=== PATIENT | male | born 2000 | race Caucasian/White ===

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

== ENCOUNTER 2018-10-10 22:36 | Emergency (ER) | payer OTHER, SELFPAY ==
[2018-10-10 22:36] VITALS: BP 128/73; PULSE 63; RESP 15; TEMP 36.7; O2SAT 98; BMI 26.9
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
--- NOTE | 2018-10-10 23:01 | ED.DEP ---
ED Disposition - Plan for ED Patient: Instructions: HEAD INJURY, No Wake-Up (Adult) Referrals: Omari Wilkes MD [Primary Care Provider] -
== END 2018-10-10 23:14 | disposition home or self-care (01) ==
LOC: ED 23:05
PROVIDERS: Emergency Provider Emergency Medicine; Family Provider Family Medicine; PCP Family Medicine
DX: S09.90XA Unspecified injury of head, initial encounter (principal); R40.2410 Glasgow coma scale score 13-15, unspecified time; W51.XXXA Accidental striking against or bumped into by another person, initial encounter; Y93.64 Activity, baseball; Y92.9 Unspecified place or not applicable
CPT/HCPCS: 99282

== ENCOUNTER → 2021-08-01 | Outpatient (CLI) | payer OTHER, SELFPAY ==
--- NOTE | 2021-08-01 10:24 | RAD_ITS ---
STUDY: XR Shoulder Min 2 Views REASON FOR EXAM: Male, 20 years old. PAIN Technologist Notes pain possibly from an old football injury, pain x 3 years TECHNIQUE: XR Shoulder Min 2 Views LEFT COMPARISON: None. FINDINGS: Normal glenohumeral articulation. Normal acromioclavicular joint. Normal acromion. Normal humeral head and visualized proximal humerus. The soft tissue structures are unremarkable. Normal visualized pulmonary apex. RAD/Shoulder min 2 Views IMPRESSION: There are no acute findings of the shoulder. Electronically Signed: Praful Wei MD at 15:43 EDT ,
== END | disposition home or self-care (01) ==
PROVIDERS: PCP Family Medicine; Referring Provider Family Medicine; Visit Provider Family Medicine
DX: M25.512 Pain in left shoulder (principal)
CPT/HCPCS: 73030

== ENCOUNTER 2024-12-10 23:16 | Emergency (ER) | payer BC, SELFPAY ==
[2024-12-10 23:17] VITALS: BP 145/88; PULSE 99; RESP 18; TEMP 36.3; O2SAT 96; BMI 27.3
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
--- OUTSIDE RECORDS SUMMARY | 2024-12-11 00:39 | XMS RPT_ITS | CCD ---
Author Organization [facility] Care Team Providers Care Stage Hand Name Role Phone Sally El Unavailable JESSICA PINO Unavailable Unavailable JESSICA PINO Unavailable Unavailable JESSICA PINO Unavailable Unavailable Medications Current Medications Medication Drug Class(es) Dates Sig (Normalized) Sig (Original) benzonatate 100 mg oral capsule (1 source) Non-narcotic Antitussive Start: 03-25-2019 take 200 mg by mouth three times daily Benzonatate Active 200 MG PO THREE TIMES A DAY March 25, 2019 12:50pm 12 hr guaiFENesin 600 mg extended release oral tablet (1 source) Start: 03-25-2019 take 1 tablet by mouth twice daily, then take 1 tablet by mouth every twelve hours Guaifenesin (Mucinex) 600 mg tablet extended release 12hr Active 600 MG PO TWICE A DAY March 25, 2019 12:46pm Completed/Discontinued Medications Medication Drug Class(es) Dates Sig (Normalized) Sig (Original) acetaminophen 325 mg / HYDROcodone bitartrate 5 mg oral tablet (1 source) Opioid Agonist Start: 03-26-2017 End: 04-03-2017 take 1 tablet by mouth every six hours as needed Hydrocodone-Acetam inophen Discontinued 1 - 2 TABLET PO EVERY 6 HOURS NEEDED March 26, 2017 9:33am April 03, 2017 3:38pm amoxicillin 875 mg / clavulanate 125 mg oral tablet (1 source) Penicillin-class Antibacterial Start: 03-25-2019 End: 04-04-2019 take 1 tablet by mouth every twelve hours Amoxicillin-Pot Clavulanate (Augmentin) 875-125 mg tablet Discontinued 1 TABLET PO Q12H 20 March 25, 2019 12:50pm April 04, 2019 1:07am docusate sodium 100 mg oral capsule (2 sources) Start: 03-26-2017 End: 04-03-2017 take 100 mg by mouth twice daily as needed Docusate Sodium Discontinued 100 MG PO TWICE DAILY NEEDED March 26, 2017 2:58pm April 03, 2017 3:38pm Drug Treatment Unknown - unknown (1 source) No information available. promethazine hydrochloride 25 mg oral tablet (2 sources) Phenothiazine Start: 03-26-2017 End: 04-03-2017 take 25 mg by mouth every four hours as needed Promethazine Discontinued 25 MG PO EVERY 4 HOURS NEEDED March 26, 2017 2:58pm April 03, 2017 3:38pm Problems Problem Classification Problem Date Documented Da te Episodic/Chronic Other upper respiratory infections (1 source) Acute sinusitis; Translations: [Acute sinusitis, unspecified] Episodic Unclassified (1 source) No current problems or disability 01-07-2017 Unclassified (1 source) Unknown / UNK(Unknown) Onset: 02-03-2017 Results Test Name Value Interpretation Reference Range Facil ity Shoulder min 2 Viewson 08-01 Shoulder min 2 Views [facility] [address] [place] [address] Shoulder min 2 Views MR#: [id number] Acct: [id number] Name: ILDA COLLAZO Rep #: [id number] : 2000 M 20 From: Praful Vera PCP: Dr. Zac Erickson MD Status: REG CLI Study: Shoulder min 2 Views Date of Exam: 08/01/21 Exam# [id number] Ordering Dr: Zac Erickson MD STUDY: XR Shoulder Min 2 Views REASON FOR EXAM: Male, 20 years old. PAIN Technologist Notes pain possibly from an old football injury, pain x 3 years TECHNIQUE: XR Shoulder Min 2 Views LEFT COMPARISON: None. FINDINGS: Normal glenohumeral articulation. Normal acromioclavicular joint. Normal acromion. Normal humeral head and visualized proximal humerus. The soft tissue structures are unremarkable. Normal visualized pulmonary apex. RAD/Shoulder min 2 Views IMPRESSION: There are no acute findings of the shoulder. Electronically Signed: Praful Wei MD at 15:43 EDT , CC: Dr. Zac Erickson MD Service Supervisor: Signed [facility] MRI ARTHROGRAM SHOULDER RTon 02-03-2017 MRI ARTHROGRAM SHOULDER RT * * *Final Report* * *DATE OF EXAM: Feb 03 2017 2:31PM [facility] 0171 - MRI ARTHROGRAM SHOULDER RT / REASON: rt shoulder,superior glenoid labrum lesion S43.431A * * * * Physician Interpretation * * * * MRI ARTHROGRAM RIGHT SHOULDERHISTORY: rt shoulder,superior glenoid labrum lesion S43.431ACOMPARISON: NoneTECHNIQUE: Multiplanar PD, T1 and T2 weighted images status post intra-articular injection of dilute gadolinium (reported separately).RESULT:Rota tor cuff: No significant tendinosis or discrete rotator cuff tear identified. Rotator cuff muscle bulk is maintained.Biceps tendon: Long head biceps tendon is intact and in appropriate position.Labrum: There is a superior labral tear with associated posterior and anterior extension consistent with a SLAP tear.Articular cartilage: Low-grade chondral fissuring along the anterior inferior glenoid.Bone/bone marrow: Cystic changes within the greater tuberosity at the infraspinatus tendon insertion. No focal lesion or marrow replacement process identified.AC joint: Within normal limits.IMPRESSION:SLAP tear of the superior labrum.Service Supervisor : LEE Transcribe Date/Time: Feb 03 2017 2:34PDictated by : JUSTINE SHAY MDThis examination was interpreted and the report reviewed and electronically signed by: JUSTINE SHAY MD on Feb 04 2017 8:33AM [id number] CN [facility] XR INJ ARTHROGRAM SHOULDER R Ton 02-03-2017 XR INJ ARTHROGRAM SHOULDER RT * * *Final Report* * *DATE OF EXAM: Feb 03 2017 1:56PM [facility] 0071 - XR INJ ARTHROGRAM SHOULDER RT / REASON: rt shoulder,superior glenoid labrum lesion S43.431A * * * * Physician Interpretation * * * * RIGHT SHOULDER ARTHROGRAM INJECTION UNDER FLUOROSCOPYHistory: Shoulder pain, gadolinium injection for MRI arthrogram.Consent: After the risks, benefits and alternatives to the procedure were discussed with the patient, the patient elected to proceed. Standard time out performed.Fluoroscopic Radiation Summary:Plane A, Air Kerma: 0.0 mGyDose Area Product (DAP): 72.0 mGy*drA5Vesvfy time: 0:01 min:secA time out was performed prior to the start of procedure.Procedure: Under fluoroscopic evaluation, a suitable target was selected and the overlying skin was marked. The patient was prepped and draped in the usual sterile fashion. Local anesthesia with 5 cc 1% lidocaine was given. Under fluoroscopic guidance, a 20 gauge spinal needle was inserted through the anesthetized track into the right shoulder joint.A solution of 10 cc sterile saline, 10 cc Omnipaque 240, and 0.1 cc Dotarem was made. 12 cc of this solution was injected into the shoulder joint, confirmed with fluoroscopy.The patient tolerated the procedure very well without any immediate complications. The patient was brought directly to MRI for imaging.IMPRESSION:Succ essful right shoulder arthrogram injection prior to MRI. The MRI will be reported separately.Transcriptio nist: PSCB Transcribe Date/Time: Feb 03 2017 2:35PDictated by : JUSTINE SHAY MDThis examination was interpreted and the report reviewed and electronically signed by: JUSTINE SHAY MD on Feb 03 2017 2:36PM [id number] CN [facility] Encounters Encounter Date Encounter Type Care Provider Facility Start: 08-01-2021 End: 08-01-2021 Patient encounter procedure [facility] Start: 02-03-2017 Ambulatory JESSICA PINO [facility] Procedures Date Procedure Procedure Detail Performing Clinician Start: 05-26-2022 Plain X-ray of shoulder Plan of Treatment Date Care Activity Detail Author Start: 01-07-2017 End: 01-07-2017 Appointment Appointment [facility] Work Phone: Payers Date Payer Category Payer Unknown SELF PAY INSURANCE [id number] Self-pay SELF PAY INSURANCE [id number] Unknown SELF PAY INSURANCE [id number] Social History Date Type Detail Facility Start: 10-10-2018 Tobacco smoking stat us [facility] Unknown if ever smoked [facility] Work Phone: Start: 2000 Sex Assigned At Male [facility] Work Phone: Medical Equipment Procedure Code Equipment Code Equipment Origin al Text Equipment Identifier Dates GRYPHON P BR ANCHOR FDA Start : 03-26-2017 GRYPHON PBR ANCHOR FDA Start: 03-26-2017 GRYPHON PBR ANCHOR FDA Start: 03-26-2017 [id number] FDA Start: 03-26-2017 SUTURELASSO,90DE G ARTHREX FDA Start: 03-26-2017 Evaluation note Note Date & Type Note Facility Evaluation note No assessment information availa ble [facility] Work Phone: Summary Purpose Family History No Family History Records FoundNo Family History Records Found Advance Directives No Advanced Directives Records Found Advance Directive Response Recorded Date/ Time Living Will No October 10, 2018 11:12pm Power of [employer] Consult[employer]er No October 10 11:12pm Additional Source Comments (unrecognized sect ion and content) No Status Records FoundNo Status Records Found INFORMATION SOURCE (unrecogn ized section and content) DATE CREATED AUTHOR 09/01/2017 [facility] DATE CREATED AUTHOR AUTHOR'S LEVI TAVARES 08/08/2021 [facility] Goals (unrecognized section and content) Goals may be documented in a n alternate section FOR RECORDS PERTAINING TO PATIENTS WHO ARE OR HAVE BEEN ENROLLED IN A CHEMICAL DEPENDENCY/SUBSTANCEABUSE PROGRAM, SOME INFORMATION MAY BE OMITTED. This clinical summary was aggregated from multiple sources. Caution should be exercised in using it in the provision of clinical care. This summary normalizes information from multiple sources, and as a consequence, information in this document may materially change the coding, format and clinical context of patient data. In addition, data may be omitted in some cases. CLINICAL DECISIONS SHOULD BE BASED ON THE PRIMARY CLINICAL RECORDS. [facility] [employer] [facility]. provides no warranty or guarantee of the accuracy or completeness of information in this document.
[2024-12-11 01:08] VITALS: BP 131/95; PULSE 83; RESP 16; TEMP 36.3; O2SAT 96
== END 2024-12-11 01:08 | disposition home or self-care (01) ==
PROVIDERS: Emergency Provider Emergency Medicine; Visit Provider Emergency Medicine
DX: S62.325A Displaced fracture of shaft of fourth metacarpal bone, left hand, initial encounter for closed fracture (principal); V89.2XXA Person injured in unspecified motor-vehicle accident, traffic, initial encounter
CPT/HCPCS: 29125; 73130; 99282